=== PATIENT | female | born 1995 ===

== ENCOUNTER 2021-01-25 04:06 | Inpatient (IN) ==
[2021-01-25] MEDS ORDERED: *HR* Propofol 200 MG/20 ML VIAL IVP ONE (04:10)
[2021-01-25] MEDS ORDERED: *HR* Succinylcholine 200 MG/10 ML VIAL IVP ONE (04:11)
[2021-01-25] MEDS ORDERED: Naloxone 0.4 MG/ML INJ IVP PRN (04:26)
[2021-01-25] MEDS ORDERED: Metoclopramide 10 MG/2 ML VIAL IVP PRN (04:26)
[2021-01-25] MEDS ORDERED: Famotidine 20 MG/2 ML VIAL IVP PRN (04:26)
[2021-01-25] MEDS ORDERED: Lidocaine 1% 20 ML MDV ID PRN (04:26)
[2021-01-25] MEDS ORDERED: *HR* FentaNYL (PF) 100 MCG/2 ML VIAL IVP PRN (04:26)
[2021-01-25] MEDS ORDERED: Ringers Solution, Lactated 1,000 ML IVC SCH (04:30)
[2021-01-25 04:51] LABS: Basophils # 0.1 K/mcL (0.0-0.2); Basophils % 0.3 %; Eosinophils # 0.1 K/mcL (0.0-0.6); Eosinophils % 0.5 %; Hematocrit 35.5 % (35.3-44.9); Hemoglobin 11.2 g/dL (11.5-15.4); Immature Granulocytes % 0.8 % (0-4); Lymphocytes # 2.3 K/mcL (0.6-4.6); Lymphocytes % 11.9 %; Mean Corpuscular HGB Conc 31.5 g/dL (31.6-35.5); Mean Corpuscular Hemoglobin 26.5 pg (28.0-33.3); Mean Corpuscular Volume 84.1 fL (83.0-100.0); Mean Platelet Volume 10.1 fL (9.4-12.4); Monocytes % 5.4 %; Neutrophils # 15.5 K/mcL (1.6-8.9); Platelet Count 290 K/mcL (140-400); Red Blood Count 4.22 M/mcL (3.82-4.97); Red Cell Distribution Width 13.8 % (11.5-14.5); Segmented Neutrophils % 81.1 %; White Blood Count 19.1 K/mcL (4.3-11.1)
[2021-01-25 05:26] LABS: Influenza A PCR Negative (Negative); Influenza B PCR Negative (Negative); Resp. Syncytial Virus PCR Negative (Negative)
[2021-01-25 05:27] LABS: SARS-CoV-2 by PCR (In House) Negative (Negative)
[2021-01-25 06:01] LABS: Hepatitis B Surface Antigen Nonreactive (Nonreactive)
[2021-01-25 06:24] LABS: Rubella IgG Antibody POSITIVE (POSITIVE); Varicella Zoster IgG Antibody Equivocal
[2021-01-25 06:30] LABS: HIV-1&2 Antibody & p24 Ag Nonreactive (Nonreactive)
[2021-01-25] MEDS ORDERED: Benzocaine/Menthol 56 GM AEROSOL SPRAY TP PRN (07:59)
[2021-01-25] MEDS ORDERED: Lanolin 7 G OINT...G. TP PRN (07:59)
[2021-01-25] MEDS ORDERED: Oxytocin 20 units/ LR 1000 mL 20 UNIT/1,000 ML BAG IVC SCH (07:59)
[2021-01-25] MEDS ORDERED: Ondansetron ODT 4 MG TAB.RAPDIS SL PRN (07:59)
[2021-01-25] MEDS ORDERED: Measles/Mumps/Rubella Vacc 0.5 ML VIAL SQ PRN (07:59)
[2021-01-25] MEDS: Prenatal Vit/FA 1 EACH TABLET PO SCH (09:26)
[2021-01-25] MEDS: Ibuprofen 600 MG TABLET PO SCH ×3 (09:26→22:22)
[2021-01-25 10:18] LABS: Amphetamine Screen,Urine Positive ng/mL (Cutoff=1000); Barbiturate Screen,Urine Negative ng/mL (Cutoff=200); Benzodiazepines Screen,Urine Negative ng/mL (Cutoff=200); Cannabinoid Screen,Urine Negative ng/mL (Cutoff = 50); Cocaine Screen,Urine Negative ng/mL (Cutoff= 300); Opiate Screen,Urine Negative ng/mL (Cutoff=300); Phencyclidine Screen,Urine Negative ng/mL (Cutoff=25)
[2021-01-25] MEDS: Acetaminophen 325 MG TABLET PO SCH ×2 (16:14→22:22)
[2021-01-26] MEDS: Acetaminophen 325 MG TABLET PO SCH (06:26)
[2021-01-26] MEDS: Ibuprofen 600 MG TABLET PO SCH (06:26)
[2021-01-26 06:46] LABS: Basophils % 0.4 %; Eosinophils # 0.1 K/mcL (0.0-0.6); Eosinophils % 1.7 %; Hematocrit 27.6 % (35.3-44.9); Immature Granulocytes % 1.4 % (0-4); Lymphocytes % 20.9 %; Mean Corpuscular HGB Conc 31.2 g/dL (31.6-35.5); Mean Corpuscular Hemoglobin 26.2 pg (28.0-33.3); Mean Corpuscular Volume 84.1 fL (83.0-100.0); Mean Platelet Volume 9.8 fL (9.4-12.4); Monocytes # 0.7 K/mcL (0.0-1.3); Monocytes % 9.2 %; Nucleated Red Blood Cells 0.3 /100 WBC (0); Platelet Count 219 K/mcL (140-400); Red Blood Count 3.28 M/mcL (3.82-4.97); Red Cell Distribution Width 13.9 % (11.5-14.5); Segmented Neutrophils % 66.4 %
[2021-01-26 06:47] LABS: Hemoglobin 8.6 g/dL (11.5-15.4); Lymphocytes # 1.7 K/mcL (0.6-4.6); Neutrophils # 5.3 K/mcL (1.6-8.9); White Blood Count 7.9 K/mcL (4.3-11.1)
[2021-01-26] MEDS: Prenatal Vit/FA 1 EACH TABLET PO SCH (08:02)
[2021-01-26 08:28] VITALS: BP 104/63; PULSE 88; TEMP 98.1; O2SAT 97
== END 2021-01-26 12:44 | disposition home or self-care (01) | DRG 560 ==
LOC: 1NENULAB 04:06 → 1NENUOBS 07:57
PROVIDERS: ADMIT Advanced Practice Midwife; ATTEND Advanced Practice Midwife